=== PATIENT | female | born 1985 | race Caucasian/White ===

== ENCOUNTER 2017-01-30 11:52 | Emergency (ER) | payer OTHER ==
[2017-01-30 12:41] VITALS: BP 142/79
--- NOTE | 2017-01-30 13:10 | UC ---
Skin Complaint HPI - HPI Summary HPI Summary: patient has small redish purple abscess that is about 2 cm in diameter. painful noticed it today - History of Current Complaint Chief Complaint: UCSkin Time Seen by Provider: 01/30/17 13:00 Stated Complaint: SKIN COMPLAINT Hx Obtained From: Patient Hx Last Menstrual Period: 2 weeks ago ?: Yes Onset/Duration: Sudden Onset, Lasting Days Skin Exposure Onset/Duration: Days Ago Onset Severity: Moderate Current Severity: Moderate - Allergy/Home Medications Allergies/Adverse Reactions: Allergies Allergy/AdvReac Type Severity Reaction Status Date / Time No Known Allergies Allergy Verified 01/30/17 12:41 Home Medications: Home Medications Oral Control 1 tab PO DAILY 01/30/17 [History Confirmed 01/30/17] Review of Systems Constitutional: Negative Skin: Other - abscess Eyes: Negative ENT: Negative Respiratory: Negative Cardiovascular: Negative Gastrointestinal: Negative Genitourinary: Negative Motor: Negative Neurovascular: Negative Musculoskeletal: Negative Neurological: Negative Psychological: Negative All Other Systems Reviewed And Are Negative: Yes PMH/Surg Hx/FS Hx/Imm Hx Previously Healthy: Yes - Surgical History Surgical History: Yes Surgery Procedure, Year, and Place: repair of ureter r/t reflux, unknown side - Family History Known Family History: Negative: Cardiac Disease, Hypertension - Social History Alcohol Use: Occasionally Substance Use Type: None Smoking Status (MU): Never Smoked Tobacco Physical Exam Triage Information Reviewed: Yes Appearance: Well-Appearing, Well-Nourished, Pain Distress Vital Signs: Initial Vital Signs Temp 97.9 F 01/30/17 12:36 Pulse 74 01/30/17 12:36 Resp 16 01/30/17 12:36 BP 142/79 01/30/17 12:36 Pulse Ox 100 01/30/17 12:36 Vital Signs Reviewed: Yes Eye Exam: Normal Eyes: Positive: Conjunctiva Clear ENT: Positive: Hearing grossly normal, Pharynx normal, TMs normal Dental Exam: Normal Neck exam: Normal Neck: Positive: Supple, Nontender, No Lymphadenopathy Respiratory Exam: Normal Respiratory: Positive: Chest non-tender, Lungs clear, Normal breath sounds Cardiovascular Exam: Normal Cardiovascular: Positive: RRR, No Murmur, Pulses Normal Abdominal Exam: Normal Bowel Sounds: Positive: Present Musculoskeletal Exam: Normal Musculoskeletal: Positive: Strength Intact, ROM Intact, No Edema Neurological Exam: Normal Neurological: Positive: Alert Psychological Exam: Normal Skin: Positive: Other - samll abcess on the under side of the right breast. no pustule hard to touch Course/Dx - Course Course Of Treatment: hx obtained, exam performed ,meds reivewied, treated for boil, educated on hot compresses. - Differential Diagnoses - Skin Complaint Differential Diagnoses: Abscess - Diagnoses Provider Diagnoses: abscess Discharge - Discharge Plan Condition: Stable Disposition: HOME Prescriptions: Cephalexin CAP* [Keflex CAP*] 500 mg PO BID #14 cap Patient Education Materials: Abscess (ED) Additional Instructions: 1. take the medication as prescribed. 2. Increase fluid intake 3. hot compresses 4-5 times a day fr the nect few days.
== END 2017-01-30 13:14 | disposition home or self-care (01) ==
LOC: UCCORT 11:52
DX: N61.1 Abscess of the breast and nipple (principal)
CPT/HCPCS: 99202; G0463

== ENCOUNTER 2018-08-20 10:14 | Emergency (ER) | payer OTHER ==
[2018-08-20 10:44] VITALS: BP 148/97
--- NOTE | 2018-08-20 11:13 | UC ---
Skin Complaint HPI - HPI Summary HPI Summary: 33 yo female with red spot noted on tip of nose yesterday now worse and painful with some crust new area may be developing (see image)...slight pruritis no f/c no eye pain or photophobia no hx MRSA - History of Current Complaint Chief Complaint: UCSkin Time Seen by Provider: 08/20/18 11:03 Stated Complaint: SKIN CONCERN - NOSE Hx Obtained From: Patient Hx Last Menstrual Period: 08/19/18 Onset/Duration: Gradual Onset, Lasting Hours Timing: Constant Onset Severity: Mild Current Severity: Mild Pain Intensity: 2 Pain Scale Used: 0-10 Numeric Location: Face, Nose Character: Pruritus, Pain, Raised Aggravating Factor(s): Touch Associated Signs & Symptoms: Positive: Rash - Allergy/Home Medications Allergies/Adverse Reactions: Allergies Allergy/AdvReac Type Severity Reaction Status Date / Time No Known Allergies Allergy Verified 08/20/18 10:39 PMH/Surg Hx/FS Hx/Imm Hx Previously Healthy: Yes - Surgical History Surgical History: Yes Surgery Procedure, Year, and Place: repair of ureter r/t reflux, unknown side. appendix - Family History Known Family History: Negative: Cardiac Disease, Hypertension - Social History Alcohol Use: Daily Alcohol Amount: GLASS OF WINE DAILY Substance Use Type: None Smoking Status (MU): Never Smoked Tobacco Review of Systems All Other Systems Reviewed And Are Negative: Yes Constitutional: Positive: Negative Skin: Positive: Rash Eyes: Positive: Negative ENT: Positive: Negative Respiratory: Positive: Negative Cardiovascular: Positive: Negative Gastrointestinal: Positive: Negative Genitourinary: Positive: Negative Motor: Positive: Negative Neurovascular: Positive: Negative Musculoskeletal: Positive: Negative Neurological: Positive: Negative Psychological: Positive: Negative Physical Exam Triage Information Reviewed: Yes Appearance: Well-Appearing, No Pain Distress, Well-Nourished Vital Signs: Initial Vital Signs Temp 98.2 F 08/20/18 10:40 Pulse 92 08/20/18 10:40 Resp 16 08/20/18 10:40 BP 148/97 08/20/18 10:40 Pulse Ox 99 08/20/18 10:40 Vital Signs Reviewed: Yes Eyes: Positive: Conjunctiva Clear. Negative: Conjunctiva Inflamed ENT: Positive: Hearing grossly normal. Negative: Nasal congestion, Nasal drainage, Tonsillar swelling, Tonsillar exudate, Sinus tenderness Neck: Positive: Supple, Nontender, No Lymphadenopathy Respiratory: Positive: Lungs clear, Normal breath sounds, No respiratory distress Cardiovascular: Positive: RRR, No Murmur, Pulses Normal Musculoskeletal: Positive: ROM Intact, No Edema Neurological: Positive: Alert Psychological Exam: Normal Skin Exam: Other - see image Images Head: 1 - dime sized red area tip of nose (left of center) 2 - quarter sized area of what could be an early crop of small vesicles Course/Dx - Diagnoses Provider Diagnosis: Rash and nonspecific skin eruption Discharge - Sign-Out/Discharge Documenting (check all that apply): Patient Departure All imaging exams completed and their final reports reviewed: No Studies - Discharge Plan Condition: Stable Disposition: HOME Prescriptions: Famciclovir(NF) [Famvir(NF)] 500 mg PO TID #21 tab Mupirocin 2% OINT* [Bactroban 2 % Oint*] 1 applic TOPICAL TID #1 tube Sulfamethox/Trimethoprim DS* [Bactrim DS 800/160 TAB*] 1 tab PO BID #14 tab Forms: *Work Release Referrals: No Primary Care Phys,NOPCP [Primary Care Provider] - Additional Instructions: I am unsure of the cause of the infection on the tip of your nose Possibilities include impetigo /MRSA/shingles tests are pending and as results come in hopefully we come up with a definitive diagnosis RECHECK FOR EYE PAIN OR SEVERE LIGHT SENSITIVITY recheck for worsening symptoms don't squeeze gently clean twice daily with soap and water apply thin film of ointment (bactroban) to the raw appearing area on the tip of your nose I am including information on MRSA and Shingles in case one of these proves to be the diagnosis - Billing Disposition and Condition Condition: STABLE Disposition: Home
[2018-08-22 20:45] LABS: HSV 1 PCR Negative (Negative); Herpes Source NOSE
[2018-08-23 17:26] LABS: Varicella Zoster Result Negative (Negative); Varicella Zoster Source NOSE
== END 2018-08-20 11:58 | disposition home or self-care (01) ==
LOC: UCCORT 10:14
DX: R21 Rash and other nonspecific skin eruption (principal); J34.89 Other specified disorders of nose and nasal sinuses
CPT/HCPCS: 87070; 87077; 87205; 87529; 87798; 99212; G0463